=== PATIENT | female | born 1990 | race Caucasian/White ===

== ENCOUNTER 2023-07-12 21:11 | Emergency (ER) | payer BC ==
[~2023-07-12] VITALS: Ht 167.6 cm; Wt 61.2 kg
[2023-07-12 21:19] VITALS: BP_SYST 134; PULSE 93; RESP 18; TEMP 97.8; O2SAT 98
[2023-07-12 22:59] VITALS: BP_SYST 126; PULSE 88; RESP 20; TEMP 97.8; O2SAT 99
== END 2023-07-12 22:59 | disposition home or self-care (01) ==
LOC: SED 21:11
DX: S01.112A Laceration without foreign body of left eyelid and periocular area, initial encounter (principal); W45.8XXA Other foreign body or object entering through skin, initial encounter; Y93.89 Activity, other specified; Y92.89 Other specified places as the place of occurrence of the external cause; Y99.8 Other external cause status
CPT/HCPCS: 99282